=== PATIENT | female | born 1990 | race Caucasian/White ===

== ENCOUNTER 2017-04-30 18:52 | Emergency (ER) | payer MEDICAID, OTHER ==
[~2017-04-30] VITALS: Ht 167.6 cm; Wt 118.0 kg
[~2017-04-30 18:52] MED LIST: BEN50 PO; CIPR500T4 PO; CROM10DR6 BOTH EYES; FIORICET PO; LORA5TAB4 PO; ONDA4TAB95 PO; PETR3.5O6 BOTH EYES; TRAM50TA2 PO; [UNRECOGNIZED DRUG - CODE] TP
[2017-04-30 18:59] VITALS: Ht 167.6 cm; Wt 118.0 kg
--- NOTE | 2017-04-30 20:48 | RADRPT ---
PROCEDURE: Left XR Hand. CLINICAL INDICATION: Hyperextension of the left finger and wrist. TECHNIQUE: AP, oblique and lateral views of the left hand were obtained. COMPARISON: No. FINDINGS: The bones of the hand appear intact, with no evidence of fracture, dislocation, or subluxation. The joint spaces are preserved. Bone mineralization is normal. No significant soft tissue swelling is se en. IMPRESSION: 1. Normal left hand. RPTAT:AAJJ Physician Ashley Date Time Electronically viewed and signed by Physician Ashley on 04/30/2017 20:48 /
--- NOTE | 2017-04-30 20:56 | RADRPT ---
PROCEDURE: XR Left Wrist. CLINICAL INDICATION: Hyperextension of the left second finger and wrist. TECHNIQUE: AP, lateral, navicular and oblique views of the left wrist were performed. COMPARISON: No prior studies are available for comparison. FINDINGS: The alignment of the second metatarsal bone with the trapezoid is believed to be within limits of no rmal. That there is a high index of suspicion for dislocation of the proximal end of the left secon d metacarpal bone. A CT scan should be considered for evaluation. IMPRESSION: 1. Normal left wrist with navicular view. 2. Acute highly suspected dislocation of the proximal end of the second metacarpal bone, a CT scan can be performed for more detailed evaluation. RPTAT:AAJJ Physician Ashley Date Time Electronically viewed and signed by Physician Ashley on 04/30/2017 20:56 /
--- NOTE | 2017-04-30 21:13 | ERD ---
ER Documentation Chief Complaint Date/Time DATE: 04/30/17 TIME: 21:11 Chief Complaint left hand pain/swelling x 1 hour while playing with son TREVER This 26-year-old female presents to emergency department today for left hand pain. Patient reports that she was playing with her son leaning on her hands when she rolled her hand sideways. Patient reports feeling a" odd pulling, tingling"kind pain with movement feeling continues to have this sensation at this time, patient denies any significant pain took 400 mg of ibuprofen prior to coming to emergency department. ROS All systems reviewed and are negative except as per history of present illness. Medications Home Meds Active Scripts Ibuprofen* (Motrin*) 400 Mg Tab, 400 MG PO Q6, #30 TAB Prov:AP,MELODY 05/01/17 Acetamin/Butalbital/Caffeine* (Fioricet*) [id number] Tab, 1 TAB PO Q6H Y for PAIN, #30 TAB Prov:ANTONIO SHORT NP 07/10/16 Hydrocortisone (Hydrocortisone) 30 Gm Oint..gm., 30 GM TP BID for ALLERGIC REACTION, #30 GM Prov:PARTHA GRAYSON PA-C 05/10/15 Loratadine* (Claritin*) 5 Mg Tab.rapdis, 5 MG PO DAILY, #30 TAB Prov:PARTHA GRAYSON-C 05/10/15 Diphenhydramine Hcl* (Benadryl*) 50 Mg Cap, 50 MG PO BEDSIDE MEDICATION Y for ALLERGIC REACTION, #30 Prov:PARTHA GRAYSONC 05/10/15 Cromolyn Sodium* (Cromolyn Sodium*) 4% - 10 Ml Drops, 1 DROP BOTH EYES Q6, #1 EA Prov:PARTHA GRAYSONC 05/10/15 Petrolat,Wht/Min Oil/Sod Chl* (Artificial Tears* Oint) 3.5 gm Oint Opht, 1 APPLIC BOTH EYES NEEDED Y for DRY EYES, #1 EA Prov:PARTHA GRAYSON-C 05/10/15 Reported Medications Tramadol HCl (Tramadol HCl) 50 Mg Tab, 50 MG PO EVERY 4-6 HOURS Y for PAIN, TAB 11/22/14 Ciprofloxacin Hcl* (Ciprofloxacin Hcl*) 500 Mg Tablet, 500 MG PO BID, TAB 09/02/14 Ondansetron Hcl* (Ondansetron Hcl*) 4 Mg Tablet, 4 MG PO Q6H Y for NAUSEA AND/ OR VOMITING, TAB 09/02/14 Allergies Allergies: Coded Allergies: No Known Drug Allergies (Verified Allergy, Unknown, 04/30/17) PMhx/Soc History of Surgery: No Anesthesia Reaction: No Hx Neurological Disorder: No Hx Respiratory Disorders: No Hx Cardiac Disorders: No Hx Psychiatric Problems: No Hx Miscellaneous Medical Probl: Yes (OVARIAN CYST, gallstones) Hx Alcohol Use: No Hx Substance Use: No Hx Tobacco Use: No Smoking Status: Never smoker Physical Exam Vitals Vital Signs Date Time Temp Pulse Resp B/P Pulse Ox O2 Delivery O2 Flow Rate FiO2 05/01/17 00:20 98.7 88 20 Room Air 04/30/17 18:59 99.1 78 20 140/70 99 Vitals stable, triage notes reviewed Physical Exam Const: Well-appearing, well-hydrated, well-nourished, in no acute distress Head: Atraumatic Eyes: Normal Conjunctiva, PERRLA, EOMI ENT: Normal External Ears, Nose and Mouth. Mucous membranes moist Neck: Resp: Respirations even and unlabored, no respiratory distress Cardio: Abd: Skin: No petechiae or rashes Back: Ext: Hand -left Skin: No laceration, or evidence of external trauma Compartments: Soft Sensation: Intact shoulder/pinky/middle finger/thumb web space Bones: Full range of motion including isolated flexor digitorum and superficial flexor digitorum, PIP and MP tenderness Snuffbox: Positive Joints: No effusion Wrist: Flex/Ext: Normal Uln/Radial deviation: Normal Pron/Supination Normal Finger: Flex/Ext: Normal Add/abd: Normal Thumb: Flex/Ext: Normal Opposition: Normal Thumbs up: Normal Neur: Awake and alert Psych: Normal Mood and Affect Procedures/MDM PROCEDURE: XR Left Wrist. CLINICAL INDICATION: Hyperextension of the left second finger and wrist. TECHNIQUE: AP, lateral, navicular and oblique views of the left wrist were performed. COMPARISON: No prior studies are available for comparison. FINDINGS: The alignment of the second metatarsal bone with the trapezoid is believed to be within limits of normal. That there is a high index of suspicion for dislocation of the proximal end of the left second metacarpal bone. A CT scan should be considered for evaluation. IMPRESSION: 1. Normal left wrist with navicular view. 2. Acute highly suspected dislocation of the proximal end of the second metacarpal bone, a CT scan can be performed for more detailed evaluation. PROCEDURE: Left XR Hand. CLINICAL INDICATION: Hyperextension of the left finger and wrist. TECHNIQUE: AP, oblique and lateral views of the left hand were obtained. COMPARISON: No. FINDINGS: The bones of the hand appear intact, with no evidence of fracture, dislocation, or subluxation. The joint spaces are preserved. Bone mineralization is normal. No significant soft tissue swelling is seen. IMPRESSION: 1. Normal left hand. RPTAT:AAJJ Physician Ashley Date Time PROCEDURE: CT of the upper extremity without intravenous contrast. CLINICAL INDICATION: Trauma TECHNIQUE: CT of the left hand upper extremity was performed without contrast utilizing axial images with reconstructions in sagittal and coronal planes. The administered radiation dose is CTDI vol = 7.4 mGy, DLP = 175 mGy-cm. COMPARISON: There are no similar studies submitted for comparison. FINDINGS: There is no acute fracture. No destructive osseous lesion is identified. The muscles are normal in size. There is no joint effusion. The subcutaneous soft tissues are within normal limits. IMPRESSION: No acute fracture. RPTAT: HIKT .Suhas Hobson MD, MD Date Time Electronically viewed and signed by .Suhas Hobson MD, MD on 04/30/2017 23:29 This pleasant 26-year-old female presents to emergency department today for evaluation of left hand injury. Patient is right-handed reports playing with her child rolled her hand feeling movement of her bones and a burning painful tingly sensation. Patient has had pain in her pointer finger and wrist ever since. Low suspicion for flexor tendon injury, vascular injury, compartment syndrome, or fracture. X-ray x-ray ordered regardless, hand x-ray unremarkable , wrist x-ray documents: That there is a high index of suspicion for dislocation of the proximal end of the left second metacarpal bone. This case discussed with supervising physician Dr. Torres . CAT scan ordered with no evidence of acute fracture or dislocation documented. Patient placed in a wrist splint. Instructed in rest ice compression elevation. Discharged home with Motrin 400 mg 1 tab p.o. every 6 hours as needed, I feel the patient is stable for discharge at this time outpatient management by primary care physician I have discussed results, examination findings, the treatment plan with the patient and family present prior to discharge. Indications for emergent reevaluation, side effects of medication were also discussed. All questions were answered. Patient verbalizes understanding and agrees with plan of care. Departure Diagnosis: Primary Impression: Pain of hand Laterality: left Qualified Code: M79.642 - Pain of left hand Condition: Good Patient Instructions: Sprain Hand [facility] Additional Instructions: Thank you for for coming to [facility] for your care today. Please ask your nurse or provider if you have questions about your care today and do not leave until all your questions have been answered. Please use any medications given as directed and follow-up with your doctor (or the doctor you were referred to) in the next 2-3 days. If you do not have a primary care doctor you may follow up at the [facility] [place] (listed below). You may also use motrin and tylenol as needed for fever and/or pain unless instructed otherwise by your provider or nurse. Indications for more urgent follow-up have been discussed, but you may return to the Emergency Department at ANY time for any worrisome or worsening symptoms. If you have abdominal pain, please know that no test or exam you received is perfect and you should follow up within 8 hours for continued pain. If you had any imaging studies today, such as an X-Ray or CT Scan, these studies will be reviewed later by a radiologist. You will be called if there are important findings that were not identified today, so make sure the contact information you provided at registration is correct. If you received any narcotic pain control medicine today, such as Vicodin, Morphine or Dilaudid, your coordination and judgment may be affected for a number of hours. Please do not drive or operate heavy machinery, and you may want someone to assist you at home. If you were given a prescription for narcotic medication, be aware that it is very addictive- use sparingly and only if necessary. FELICIANO DE SOUZA Apr 30, 2017 21:13
--- NOTE | 2017-04-30 23:29 | RADRPT ---
PROCEDURE: CT of the upper extremity without intravenous contrast. CLINICAL INDICATION: Trauma TECHNIQUE: CT of the left hand upper extremity was performed without contrast utilizing axial imag es with reconstructions in sagittal and coronal planes. The administered radiation dose is CTDI vol = 7.4 mGy, DLP = 175 mGy-cm. COMPARISON: There are no similar studies submitted for comparison. FINDINGS: There is no acute fracture. No destructive osseous lesion is identified. The muscles are normal in size. There is no joint effusion. The subcutaneous soft tissues are within normal limits. IMPRESSION: No acute fracture. RPTAT: HIKT .Suhas Hobson MD, MD Date Time Electronically viewed and signed by .Suhas Hobson MD, on 04/30/2017 23:29 .T/
[2017-05-01] MEDS ORDERED: IBUP400T22 PO (00:04)
[2017-05-01 00:20] VITALS: PULSE 88; RESP 20; TEMP 98.7
== END 2017-05-01 00:15 | disposition home or self-care (01) ==
LOC: FTE 18:52
DX: M79.642 Pain in left hand (principal)
CPT/HCPCS: 29515; 73110; 73130; 73200; Z7610

== ENCOUNTER 2017-10-18 19:18 | Emergency (ER) | END 2017-10-19 00:30 | disposition home or self-care (01) ==

== ENCOUNTER 2018-01-07 18:16 | Emergency (ER) | END 2018-01-07 19:15 | disposition home or self-care (01) ==

== ENCOUNTER 2018-02-11 07:19 | Day surgery (SDC) | END 2018-02-11 11:50 | disposition home or self-care (01) ==

== ENCOUNTER 2018-02-15 20:16 | Emergency (ER) | END 2018-02-15 23:46 | disposition home or self-care (01) ==

== ENCOUNTER 2019-05-05 20:32 | Emergency (ER) | payer OTHER ==
[~2019-05-05] VITALS: Ht 165.1 cm; Wt 119.8 kg
[~2019-05-05 20:32] MED LIST changes: -BEN50 PO; +CHOL400T10 PO; -CIPR500T4 PO; -CROM10DR6 BOTH EYES; -FIORICET PO; +IRON PO; -LORA5TAB4 PO; -ONDA4TAB95 PO; -PETR3.5O6 BOTH EYES; -TRAM50TA2 PO; -[UNRECOGNIZED DRUG - CODE] TP
[2019-05-05 20:37] VITALS: Ht 165.1 cm; Wt 119.8 kg
[2019-05-05] MEDS ORDERED: IBUP-1542 PO (22:42)
--- NOTE | 2019-05-05 22:48 | ERD ---
ER Documentation Chief Complaint Chief Complaint CHEST PAIN RADIATES LEFT ARM PAIN X1DAY; NO MED HX HPI 28-year-old female with no reported past medical history, negative family history who presents with complaint of midsternal chest pain today. Describes it as pressure-like pain that is constant, rating to left arm, made worse by movement of upper extremity and heavy lifting. She otherwise denies family history of early cardiac , recent URI type symptoms or illness, associated nausea, vomiting, diaphoresis, shortness of breath, dyspnea. She denies any history of pulmonary disease. At time evaluation patient nontoxic-appearing with normal triage vital signs. ROS All systems reviewed and are negative except as per history of present illness. Medications Home Meds Active Scripts Ibuprofen* (Motrin*) 600 Mg Tab, 600 MG PO Q6, #30 TAB Prov:AARON LARA PA-C 05/05/19 Reported Medications [Iron] No Conflict Check, PO DAILY 02/11/18 Cholecalciferol* (Vitamin D*) 400 Unit Tablet, 70382 UNIT PO WEEKLY, TAB 02/11/18 Allergies Allergies: Coded Allergies: No Known Drug Allergies (Verified Allergy, Unknown, 02/11/18) PMhx/Soc History of Surgery: Yes (polyp removal) Anesthesia Reaction: No Hx Neurological Disorder: No Hx Respiratory Disorders: No Hx Cardiac Disorders: No Hx Psychiatric Problems: No Hx Miscellaneous Medical Probl: Yes (ANEMIA) Hx Alcohol Use: Yes (SOCIALLY) Hx Substance Use: No Hx Tobacco Use: No Smoking Status: Never smoker FmHx Family History: No diabetes, No coronary disease, No other Physical Exam Vitals Vital Signs Date Temp Pulse Resp B/P (MAP) Pulse Ox O2 O2 Flow FiO2 Time Delivery Rate 05/05/19 99.4 82 19 129/76 100 20:37 (93) Physical Exam I have reviewed the triage vital signs. Const: Well nourished, well developed, appears stated age Eyes: PERRL, no conjunctival injection HENT: NCAT, Neck supple without meningismus CV: RRR, Warm, well-perfused extremities RESP: CTAB, Unlabored respiratory effort GI: soft, non-tender, non-distended, no masses MSK: No gross deformities appreciated, tenderness to mid sternum with palpation, bilateral upper extremities 5 out of 5 strength, silt throughout Skin: Warm, dry. No rashes Neuro: grossly non focal Psych: Appropriate mood and affect. Results 24 hrs Laboratory Tests Test 05/05/19 22:20 POC Beta HCG, Qualitative NEGATIVE Procedures/MDM Patient otherwise healthy, p/w atypical chest pain ML of nonemergent etiology. Given exam with tenderness to palpation to mid sternum suspect costochondritis. No overt risk factors for ACS ECG without overt e/o STEMI, Brugadas sign, delta wave, epsilon wave, significantly prolonged QTc, or malignant arrhythmia. Low Wells score with low risk for PE and no significant hypoxia. Given chronicity and pain characteristics, low s/f dissection. Exam and history not consistent with significant PTX or PNA. Pain controlled, well appearing. Cautious return precautions discussed with full understanding. Prompt follow up with primary care physician discussed. DISPOSITION PLAN: We discussed follow up with the patient's primary care doctor within 24 to 48 hours. Patient counseled regarding my diagnostic impression and care plan. Prior to discharge all questions answered. Pt agrees with treatment plan and understands strict return precautions. Precautionary instructions provided including instructions to return to the ER if not improving or for any worsening or changing symptoms or concerns. Disclaimer: Inadvertent spelling and grammatical errors are likely due to EHR/dictation software use and do not reflect on the overall quality of patient care. Also, please note that the electronic time recorded on this note does not necessarily reflect the actual time of the patient encounter. Departure Diagnosis: Primary Impression: Chest pain Condition: Stable Patient Instructions: Costochondritis Referrals: [facility] (PC[facility]) Additional Instructions: Call your primary care doctor TOMORROW for an appointment during the next 2-3 days.See the doctor sooner or return here if your condition worsens before your appointment time. AARON LARA PA-C May 05, 2019 22:48
[2019-05-05 22:54] VITALS: BP 137/81; PULSE 79; RESP 16
== END 2019-05-05 22:55 | disposition home or self-care (01) ==
LOC: FTE 20:32
DX: R07.89 Other chest pain (principal)
CPT/HCPCS: 81025; 93005; Z7502